=== PATIENT | female | born 1960 | race Caucasian/White ===

== ENCOUNTER 2018-07-28 14:44 | Emergency (ER) | payer BC ==
[~2018-07-28] VITALS: Wt 90.0 kg
[2018-07-28 15:01] VITALS: BP 133/77; PULSE 80; RESP 18
[2018-07-28] MEDS ORDERED: NAPR-985 PO (16:33)
--- NOTE | 2018-07-28 17:54 | ERD ---
ER Documentation Chief Complaint Chief Complaint right foot pain HPI 58-year-old female presents the emergency department complaining of right dorsal foot pain for the past 2 days. Rates it moderate in severity but has been worsening today. Patient states that she does a lot of walking. She has tried ibuprofen with no relief. ROS All systems reviewed and are negative except as per history of present illness. Medications Home Meds Active Scripts Naproxen* (Naprosyn*) 500 Mg Tablet, 500 MG PO BID PRN for PAIN AND/OR INFLAMMATION, #30 TAB Prov:ALEENA ARNOLD PA-C 07/28/18 Allergies Allergies: Coded Allergies: No Known Allergy (Unverified , 07/28/18) PMhx/Soc Hx Neurological Disorder: No Hx Respiratory Disorders: No Hx Cardiac Disorders: Yes (Hypertension) Hx Psychiatric Problems: No Hx Miscellaneous Medical Probl: Yes (Hypothyroidism) Hx Alcohol Use: Yes (occassionally) Hx Substance Use: No Hx Tobacco Use: No Smoking Status: Never smoker Physical Exam Vitals Vital Signs Date Temp Pulse Resp B/P (MAP) Pulse Ox O2 O2 Flow FiO2 Time Delivery Rate 07/28/18 97.6 80 18 133/77 99 15:01 (95) Physical Exam Const: No acute distress Head: Atraumatic Eyes: Normal Conjunctiva ENT: Normal External Ears, Nose and Mouth. Neck: Full range of motion. No meningismus. Resp: Clear to auscultation bilaterally Cardio: Regular rate and rhythm, no murmurs Abd: Soft, non tender, non distended. Normal bowel sounds Skin: No petechiae or rashes Back: No midline or flank tenderness Ext: Right dorsal pain Neur: Awake and alert Psych: Normal Mood and Affect Procedures/MDM 4-year-old female presents the emergency department complaining of right foot pain for the past 2 days, there was no evidence of any fracture dislocation. XR showed degenerative changes. Patient was instructed to follow-up with her primary care physician. Return precautions given XR right foot pain Mild soft tissue swelling without evidence of acute fracture. 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 Large calcaneal spurs. Departure Diagnosis: Primary Impression: Foot pain Condition: Stable Patient Instructions: Foot Surgery: Degenerative Joint Disease, Sprain Foot Referrals: DOCTOR,NOT ON STAFF (PCP) ALEENA ARNOLD PA-C Jul 28, 2018:54
== END 2018-07-28 16:49 | disposition home or self-care (01) ==
LOC: E/R 14:44 → FTE 16:49
DX: M79.671 Pain in right foot (principal); I10 Essential (primary) hypertension; E03.9 Hypothyroidism, unspecified
CPT/HCPCS: 73630